=== PATIENT | male | born 1950 | race Caucasian/White ===

== ENCOUNTER → 2019-08-17 11:28 | Outpatient (CLI) | payer MEDICARE, BC | END | disposition home or self-care (01) | LOC: D.HCCARDIO 11:28 | PROVIDERS: ATTEND Internal Medicine Cardiovascular Disease | DX: R55 Syncope and collapse (principal) ==

== ENCOUNTER 2019-09-07 12:10 | Outpatient (CLI) | payer MEDICARE, BC ==
[~2019-09-07] VITALS: Ht 185.4 cm; Wt 83.4 kg
--- NOTE | ~2019-09-07 | HEMODYNAMI ---
PATIENT:KYLAH PAULA MEDICAL RECORD: [id number] : 46 LOCATION:[facility] ADMISSION DATE: 09/07/19 Generatedon:09/07/201915:01 Patient name: KYLAH PAULA Patient #: [id number] SSN: [id number] : 1950 Date of study: 09/07/2019 Page: Of Hemodynamic Procedure Report Patient Data Patient Demographics Procedure consent was obtained First Name: KYLAH Gender: Male Last Name: CHAI : 1950 Middle Initial: VIK Age: 69 year(s) Patient #: [id number] Race: SSN: [id number] Additional ID: [id number] Contact details [address]: [address] [place] [address] State: [place] City: [place] Zip code: [address] Admission Admission Data Admission Date: 09/07/2019 Admission Time: 12:10 Arrival Date: 09/07/2019 Arrival Time: 13:00 Admit Source: Other Insurance Payor: Medicare [facility] #: [id number] Height (in.): 72.83 BSA: 2.07 (m2) Height (cm.): 185 BMI: 24.25 (kg/m2) Weight (lbs.): 182.98 Weight (kg.): 83 Lab Results Lab Result Date: 09/07/2019 Lab Result Time: 0:00 Biochemistry Name Units Result Min Max BUN mg/dl 14 --(--*-)-- 7 18 Creatinine mg/dl 0.9 --(-*--)-- 0.6 1.3 eGFR ml/min 88.14652 -*(----)-- 90 120 NONAFRICAN CBC Name Units Result Min Max Hemoglobin g/dl 15 --(-*--)-- 13.5 17.5 Procedure Procedure Types Cath Procedure Diagnostic Procedure LHC LHC w/Coronaries Sedation Charges Moderate Sedation up to 30 minutes PCI Procedure Coronary Stent Coronary Stent Initial Hemochron ACT Test Procedure Description Procedure Date Procedure Date: 09/07/2019 Procedure Start Time: 14:23 Procedure End Time: 14:55 Procedure Staff Name Function Maikel Gonzalez MD Performing Physician Sweta Singh RT Monitor Leelee Villar RT Scrub Martine Baumann RN Nurse Procedure Data Cath Procedure Fluoroscopy Diagnostic fluoroscopy Total fluoroscopy Time: 8.2 time: 8.2 min min Diagnostic fluoroscopy Total fluoroscopy dose: 853 dose: 853 mGy mGy Contrast Material Contrast Material Type Amount (ml) Isovue 300 129 Entry Location Entry Primary Successful Side Size Upsize Upsize Entry Closure Ortiz ccessful Closure Location (Fr) 1 (Fr) 2 (Fr) Remarks Device Remarks Radial Right 6 Fr Mechanical artery Short Compression Estimated blood loss: 5 ml Diagnostic catheters Device Type Used For End Catheter Placement DIAGNOSTIC Michael 110cm Multi-vessel 5Fr catheter ([id number]) Angiography Procedure Complications No complications Procedure Medications Medication Administration Route Dosage Oxygen etCO2 Nasal cannula 2 l/min Lidocaine 2% added to field 20 Heparin Flush Bag added to field 2 bags (1000units/500ml NS) 0.9% NaCl I.V. 100 ml/hr Versed I.V. 1 mg Fentanyl I.V. 50 mcg Versed I.V. 1 mg Fentanyl I.V. 50 mcg Radial Cocktail I.A. 1 syringe (Verapamil 2mg/Nitro 400mcg/Heparin 1500units) Versed I.V. 1 mg Fentanyl I.V. 50 mcg Heparin Bolus I.V. 8000 units Versed I.V. 1 mg Fentanyl I.V. 50 mcg Plavix P.O. 600 mg Hemodynamics Rest BSA: 2.07 (m2) HGB: 15 (g/dl) O2 Consumption: Estimated: 231 (ml/min) O2 Consump tion indexed: Estimated:111.59 (ml/min/m) Heart Rate: 59 (bpm) Pressure Samples Time Site Value (mmHg) Purpose Heart Use Rate(bpm) 14:27 LV 122/-16,1 Snapshot 95 Gradients Valve Time Site Site Mean SEP/DFP Peak To Heart Use 1 2 (mmHg) (sec/min) Peak Rate (mmHg) (bpm) Aortic 14:28 LV AO 114 Snapshots Pre Cath Intra NCS Post Cath Vital Signs Time Heart Resp SPO2 etCO2 NIBP (mmHg) Rhythm Pain Sedation Rate (ipm) (%) (mmHg) Status Level (bpm) 14:13:02 56 14 94 35.1 123/74(96) NSR 0 (11) 10(A) , No pain 14:17:16 56 12 95 44.1 133/74(110) NSR 0 (11) 10(A) , No pain 14:21:42 58 12 95 29.1 122/42(97) NSR 0 (11) 10(A) , No pain 14:25:54 57 13 97 33.6 125/77(95) NSR 0 (11) 9(A) , No pain 14:30:06 68 17 93 32.1 122/70(85) NSR 0 (11) 9(A) , No pain 14:34:16 82 16 94 29.1 129/79(94) NSR 0 (11) 9(A) , No pain 14:38:26 79 15 95 38.1 126/73(111) NSR 0 (11) 9(A) , No pain 14:42:36 77 14 96 37.3 129/82(99) NSR 0 (11) 9(A) , No pain 14:46:43 78 14 97 47.8 128/80(105) NSR 0 (11) 9(A) , No pain 14:50:57 89 13 98 43.3 137/80(113) NSR 0 (11) 10(A) , No pain 14:55:46 84 14 99 42.1 133/76(118) NSR 0 (11) 10(A) , No pain Medications Time Medication Route Dose Verified Delivered Reason Not es Effectiveness by by 14:12:35 Oxygen etCO2 2 l/min Maikel Buffie used for Nasal Carlos Baumann RN procedure cannula 14:12:43 Lidocaine 2% added 20ml Maikel Maikel for local to vial Carlos Gonzalez MD anesthetic field 14:12:48 Heparin Flush added 2 bags Maikel Maikel used for Bag to Carlso Gonzalez MD procedure (1000units/500ml field NS) 14:12:56 0.9% NaCl I.V. 100 Maikel Buffie Per physician ml/hr Carlos Baumann RN 14:19:46 Versed I.V. 1 mg Maikel Buffie for sedation Carlos Baumann RN 14:19:52 Fentanyl I.V. 50 mcg Maikel Buffie for sedation Carlos Baumann RN 14:24:03 Versed I.V. 1 mg Maikel Buffie for sedation Carlos Baumann RN 14:24:07 Fentanyl I.V. 50 mcg Maikel Buffie for sedation Carlos Baumann RN 14:26:18 Radial Cocktail I.A. 1 Maikel Buffie for (Verapamil syringe Carlos Baumann RN vasodilation 2mg/Nitro 400mcg/Heparin 1500units) 14:35:26 Versed I.V. 1 mg Maikel Buffie for sedation Carlos Baumann RN 14:35:29 Fentanyl I.V. 50 mcg Maikel Buffie for sedation Carlos Baumann RN 14:38:03 Heparin Bolus I.V. 8000 Maikel Buffie for shorty ified units Carlos Baumann RN anticoagulation with dr gonzalez 14:44:50 Versed I.V. 1 mg Maikel Buffie for sedation Carlos Baumann RN 14:44:53 Fentanyl I.V. 50 mcg Maikel Buffie for sedation Carlos Baumann RN 14:53:00 Plavix P.O. 600 mg Maikel Buffie for Carlos Baumann RN antiplatelet therapy Procedure Log Time Note 13:46:40 Informed consent obtained and on chart 13:50:36 Martine Baumann RN sent for patient. Start room use. 14:00:47 Lab Result : BUN 14 mg/dl 14:00:47 Lab Result : eGFR NONAFRICAN 88.77506 ml/min 14:00:47 Lab Result : Creatinine 0.9 mg/dl 14:00:47 Lab Result : Hemoglobin 15 g/dl 14:00:51 Diagnostic Cath Status : Elective 14:02:34 Admit Source: Other 14:02:35 Arrival Date: 09/07/2019 1:00:00 PM 14:03:21 Insurance Payor : Medicare 14:03:24 Patient Height : 72.83 inches 14:03:27 Patient Weight : 182.98 lbs 14:03:33 Procedure Status Elective Heart Cath (OP). 14:03:48 Time tracking: Regular hours (M-F 7:00 - 5:00) 14:03:52 Plan of Care:Hemodynamics will remain stable., Cardiac rhythm will remain stable., Comfort level will be maintained., Respiratory function will remain adequate., Patient/ family verbilizes understanding of procedure., Procedure tolerated without complication., Recovers from procedure without complications.. 14:03:56 Patient received from Pre/Post Procedure Room to CCL 1 Alert and oriented. Tansferred to table in Supine position. 14:03:57 Warm blankets applied, and evelyn hugger turned on for patient comfort. 14:03:57 Correct patient and procedure confirmed by team. 14:03:58 ECG and BP/O2 sat monitors applied to patient. 14:11:54 Vital chart was started 14:11:55 Baseline sample Acquired. 14:11:59 Rhythm: sinus rhythm 14:12:01 Full Disclosure recording started 14:12:05 H&P Date Dictated: 09/07/2019 Within 30 days and on chart., H&P Addendum completed by physician on day of procedure. (MUST COMPLETE FOR ALL OUTPATIENTS). 14:12:07 Pre-procedure instructions explained to patient. 14:12:08 Pre-op teaching completed and patient verbalized understanding. 14:12:09 Family in patients room. 14:12:12 Patient NPO since Midnight. 14:12:13 Is the patient allergic to Iodine/contrast media? No. 14:12:14 Was the patient premedicated? Yes 14:12:15 Is patient on blood thinner?No 14:12:16 Patient diabetic? No. 14:12:19 Previous problem with sedation/anesthesia? No ? 14:12:22 Snore? Yes 14:12:22 Sleep apnea? No 14:12:23 Deviated septum? No 14:12:24 Opens mouth fully? Yes 14:12:25 Sticks out tongue? Yes 14:12:31 Airway obstruction? No ? 14:12:33 Dentures? No ? 14:12:35 Oxygen 2 l/min etCO2 Nasal cannula was administered by Martine Baumann RN; used for procedure; Verbal order read back and verified. 14:12:43 Lidocaine 2% 20ml vial added to field was administered by Maikel Gonzalez MD; for local anesthetic; Verbal order read back and verified. 14:12:48 Heparin Flush Bag (1000units/500ml NS) 2 bags added to field was administered by Maikel Gonzalez MD; used for procedure; Verbal order read back and verified. 14:12:56 0.9% NaCl 100 ml/hr I.V. was administered by Martine Baumann RN; Per physician; Verbal order read back and verified. 14:12:57 Pre procedure: right dorsailis pedis pulse 2+ Normal; easily identifiable; not easily obliterated 14:13:01 Pre procedure: left dorsailis pedis pulse 2+ Normal; easily identifiable; not easily obliterated 14:13:03 Patient pain scale 0/10 ?. 14:13:11 IV patent on arrival in left forearm with 0.9% NaCl at [facility]. 14:13:13 Lab results completed and on chart. 14:13:30 Stress Test: yes; abnormal INFERIOR,APICAL,LATERAL 14:16:08 Risk of Mortality: 0.1 14:16:11 Risk of blood transfusion: 0.1 14:16:15 Risk of MO: 0.3 14:16:19 Right Radial & Right Groin area was prepped with chlora-prep and draped in sterile fashion 14:16:21 Alarms reviewed by R. N. 14:16:21 Sharps counted by scrub and verified by R.N. 14:16:24 Physician arrived 14:16:24 --------ALL STOP TIME OUT------ 14:16:25 Final Timeout: patient, procedure, and site verified with staff and physician. All members of the team are in agreement. 14:16:27 Right Radial & Right Groin site verified by team. 14:16:31 Fire Safety Assessment: A--An alcohol-based skin anteseptic being used preoperatively., C--Open oxygen or nitrous oxide is being used., D--An ESU, laser, or fiber-optic light is being used. 14:16:34 Physical assessment completed. ASA score P 2 - A patient with mild systemic disease as per Maikel Gonzalez MD. 14:16:37 2) 60-89 Mildly reduced kidney function, and other findings (as for stage 1) point to kidney disease. 14:16:40 Maximum allowable contrast dose (3.7 X eGFR X 0.75)244 ml. 14:16:45 Sedation plan: IV Moderate Sedation Medication:Versed, Fentanyl 14:16:54 Use device set Radial Dx or PCI 14:16:56 ACIST Syringe (74874) opened to sterile field. 14:16:56 Medline Cath Pack ([id number]) opened to sterile field. 14:16:56 Bag Decanter (2001S) opened to sterile field. 14:16:57 ACIST Hand Control (99580) opened to sterile field. 14:16:57 ACIST Manifold (26260) opened to sterile field. 14:16:57 Tegaderm 4 x 4 (1626W) opened to sterile field. 14:16:58 MBrace Wrist Support ([id number]) opened to sterile field. 14:16:59 NEEDLE Cook 21G 4cm Radial (E92372) opened to sterile field. 14:17:00 SHEATH 6FR RAIN (9187964) opened to sterile field. 14:17:01 EMERALD Guide Wire (413-688) opened to sterile field. 14:19:46 Versed 1 mg I.V. was administered by Martine Baumann RN; for sedation; Verbal order read back and verified. 14:19:52 Fentanyl 50 mcg I.V. was administered by Martine Baumann RN; for sedation; Verbal order read back and verified. 14:23:09 Procedure started. 14:23:14 Local anesthetic to right radial artery with Lidocaine 2% by Maikel Gonzalez MD.INITIAL ACCESS ONLY 14:24:03 Versed 1 mg I.V. was administered by Martine Baumann RN; for sedation; Verbal order read back and verified. 14:24:07 Fentanyl 50 mcg I.V. was administered by Martine Baumann RN; for sedation; Verbal order read back and verified. 14:26:18 Radial Cocktail (Verapamil 2mg/Nitro 400mcg/Heparin 1500units) 1 syringe I.A. was administered by Martine Baumann RN; for vasodilation; Verbal order read back and verified. 14:26:30 A 6 Fr Short sheath was inserted into the Right Radial artery 14:27:34 A DIAGNOSTIC Michael 110cm 5Fr catheter (351722) was advanced over the wire and used for Multi-vessel Angiography. 14:27:49 LV hemodynamics recorded. 14:27:52 LV gram done using GUERRERO 14:27:55 Injector settings: Ml/sec: 5, Volume: 15, 14:28:07 EF : 60 % 14:28:56 RCA angiography performed. 14:29:00 Injector settings: Ml/sec: 3, Volume: 6, 14:30:07 LCA angiography performed. 14:30:10 Injector settings: Ml/sec: 3, Volume: 6, 14:31:11 Catheter removed. 14:31:29 INFLATOR Merit BasRalphpak (WQ1645) opened to sterile field. 14:31:30 TUBING High Pressure Extension Tubing (Carlos) (BX1011O) opened to sterile field. 14:31:30 BMW 300cm [place] 2 J wire ([id number]) opened to sterile field. 14:33:00 GUIDE 6FR XBLAD 3.5 catheter ([id number]) opened to sterile field. 14:34:26 ACC Pre-intervention CLAUDIA Flow is 3. 14:34:35 Pre PCI Site: [place] mLAD has 80% stenosis. 14:35:01 6 Fr XBLAD 3.5 guide catheter was inserted over the wire 14:35:05 BMW wire advanced. 14:35:26 Versed 1 mg I.V. was administered by Martine Baumann RN; for sedation; Verbal order read back and verified. 14:35:29 Fentanyl 50 mcg I.V. was administered by Martine Baumann RN; for sedation; Verbal order read back and verified. 14:38:03 Heparin Bolus 8000 units I.V. was administered by Martine Baumann RN; for anticoagulation; verified with dr gonzalez Verbal order read back and verified. 14:39:08 Wire advanced across lesion. 14:42:03 Place stent Inflation Number: 1 A FARHAN OTW 3.5 x 15 stent ([id number]) was prepped and advanced across the Mid LAD 80. The stent was deployed at 13 ANITA for 0:10 (min:sec) 0. 14:42:59 Stent catheter was removed intact over wire. 14:44:50 Versed 1 mg I.V. was administered by Martine Baumann RN; for sedation; Verbal order read back and verified. 14:44:53 Fentanyl 50 mcg I.V. was administered by Martine Baumann RN; for sedation; Verbal order read back and verified. 14:48:06 Place stent Inflation Number: 1 A FARHAN OTW 2.5 x 15 stent ([id number]) was prepped and advanced across the Dist LAD 80. The stent was deployed at 13 ANITA for 0:10 (min:sec) 0. 14:48:34 Stent catheter was removed intact over wire. 14:48:35 Wire removed. 14:48:36 Guide catheter removed. 14:48:45 Sheath removed intact; hemostasis achieved with Mechanical Compression to the Right Radial artery. 14:48:53 Procedure ended.(Physican Out) 14:48:56 ZEPHYR REGULAR TR BAND (319410) opened to sterile field. 14:49:25 Fluoroscopy time 08.20 minutes. 14:49:28 Fluoroscopy dose: 853 mGy 14:49:28 Flurop Dose total: 853 14:49:34 Dose Area Product 14749 mGy/cm. 14:53:00 Plavix 600 mg P.O. was administered by Martine Baumann RN; for antiplatelet therapy; Verbal order read back and verified. 14:53:21 Contrast amount:Isovue 300 129ml. 14:53:23 Maximum allowable dose exceeded? No. 14:53:24 Sharps counted by scrub and verified by R.N. 14:53:27 [place] band inflated with 15cc of air. 14:53:28 Insertion/operative site no bleeding no hematoma. 14:53:31 Post right radial artery:stable 14:53:33 Post Procedure Pulses reassessed and unchanged 14:53:35 Post procedure rhythm: unchanged. 14:53:38 Estimated blood loss: 5 ml 14:53:40 Post procedure instruction explained to patient.Patient verbalizes understanding. 14:53:40 Patient needs reinforcement of post procedure teaching. 14:54:36 Procedure type changed to Cath procedure, Diagnostic procedure, LHC, [facility] w/Coronaries, Sedation Charges, Moderate Sedation up to 30 minutes, PCI procedure, Coronary Stent, Coronary Stent Initial, Hemochron ACT Test 14:54:37 Procedure and supply charges have been captured, reviewed, submitted and are correct. 14:54:41 Procedure Complication : No complications 14:54:44 Vital chart was stopped 14:54:46 [facility] Findings: MVD- PCI performed (see procedure note) 14:54:49 Operative report dictated upon procedure completion. 14:54:50 See physician's report for complete and final results. 14:54:56 Report given to Pre/Post Procedure Room. 14:54:58 Patient transfered to Pre/Post Procedure Room with Stretcher. 14:55:00 Procedure ended. 14:55:00 Full Disclosure recording stopped 14:55:09 ACC-PCI Only Patient was given prescriptions, or instructed by Maikel Gonzalez MD to start/continue the following medications upon discharge: Plavix 14:55:11 End room use (Document Last) 14:56:11 ACT drawn and resulted at out of range high seconds. (normal therapeutic range 180-240 seconds). Intervention Summary Intervention Notes Time ActionType Lesion and Equipment Action# Pressure Duration Attributes Used 14:42:03 Place stent Mid LAD FARHAN OTW 3.5 1 13 00:10 x 15 stent ([id number]) 14:48:06 Place stent Dist LAD FARHAN OTW 2.5 1 13 00:10 x 15 stent ([id number]) Device Usage Item Name Manufacture Quantity Catalog Hospital Part Current Mini mal Lot# / Number Charge Number Stock Stock Serial# Code ACIST Syringe Acist 1 84996 979144 182913 003028 20 (61963) Medical Systems Inc Medline Cath Medline 1 [id number] 771056 68771 355145 5 Pack ([id number]) Bag Decanter Microtek 1 2001S 125988 13647 020263 5 (2001S) Medical Inc. ACIST Hand Acist 1 39864 728367 499613 693583 5 Control Medical (61942) Systems Inc ACIST Acist 1 39849 296306 987433 163655 5 Manifold Medical (07387) Systems Inc Tegaderm 4 x 3M 1 1626W 772993 139109 944426 5 4 (1626W) MBrace Wrist Advanced 1 140-0250-00 426465 80800 928628 5 Support Vascular (955245992) Dynamics NEEDLE Cook Cook Medical 1 K78736 531273 363771 261555 5 21G 4cm Radial (H32599) SHEATH 6FR Cardinal 1 1438840 952421 047[address]02 787[address] 5 [facility] (9413806) EMERALD Guide Cardinal 1 502-455 500787 561951 406400 5 [facility] Health (502-812) DIAGNOSTIC Terumo 1 40-5023 830327 130129 438384 5 Michael 110cm 5Fr catheter (740408) INFLATOR Merit 1 UN3338 570246 451452 164889 15 Merit Medical BasixCompak (CC3962) TUBING High Merit 1 [id number] 440641 83303 013784 10 Pressure Medical Extension Tubing (Carlos) (LX4103E) BMW 300cm Metzger 1 [id number] 597038 143135 807668 5 [place] 2 J Vascular wire (7845888S) GUIDE 6FR Cardinal 1 71187503 153213 963784 152395 10 XBLAD 3.5 Health catheter (81722443) FARHAN OTW 3.5 Medtronic 1 [id number] 921800 1117091 835254 5 [id number] x 15 stent ([id number]) FARHAN OTW 2.5 Medtronic 1 [id number] 015225 27338 917484 5 [id number] x 15 stent ([id number]) ZEPHYR Cardinal 1 395263 214267 2625262 650479 5 REGULAR TR Health BAND (994281) Signature Audit [place] Stage Time Signature Unsigned Intra-Procedure 09/07/2019 Sweta Singh 3:00:09 PM RT(R) Intra-Procedure 09/07/2019 Martine Baumann RN 3:01:05 PM Intra-Procedure 09/07/2019 Maikel Gonzalez MD 3:01:[address] [facility] [address] [place] [address]
[2019-09-07] MEDS ORDERED: TOPROL XL25 MG PO (12:56)
[2019-09-07] MEDS ORDERED: MOEXIPRIL HCL15 M1 PO (12:56)
[2019-09-07] MEDS ORDERED: OMEPRAZOLE20 M1 PO (12:56)
[2019-09-07] MEDS ORDERED: BAYER CHEWABLE81 MG PO (12:58)
[2019-09-07] MEDS ORDERED: PROBIOTIC1 EAC1 PO (12:58)
[2019-09-07] MEDS ORDERED: VITAMIN B-121000 MCG PO (12:59)
[2019-09-07 13:02] VITALS: BP 120/75; Ht 185.4 cm; Wt 83.4 kg
[2019-09-07 13:37] LABS: ALT (SGPT) 21 U/L (10-68); CALC OSMOLALITY 272 mosm/kg (275-300); CALCIUM 8.8 mg/dL (8.5-10.1); CARBON DIOXIDE 27.4 mmol/L (21.0-32.0); CHLORIDE - SERUM 103 mmol/L (98-107); CHOL - HDL RATIO 5.5 ratio (2.3-4.9); CHOLESTEROL, TOTAL 182 mg/dL (0-200); CREATININE - SERUM 0.9 mg/dL (0.6-1.3); GLUCOSE 92 mg/dL (74-106); HDL CHOLESTEROL 33 mg/dL (32-96); LDL CHOLESTEROL 118 mg/dL (0-100); LDL-HDL RATIO 3.6 ratio (1.5-3.5); POTASSIUM - SERUM 4.3 mmol/L (3.5-5.1); SODIUM 136 mmol/L (136-145); TRIGLYCERIDE 158 mg/dL (30-200); UREA NITROGEN 14 mg/dL (7-18); eGFR NON AFRICAN AMERICAN 88 mL/min (90-120)
[2019-09-07 13:47] LABS: BASOPHILS 0.3 % (0-2); EOSINOPHILS 2.8 % (0-7); HEMATOCRIT 46.1 % (42.0-54.0); IMMATURE GRANULOCYTES 0.4 % (0-5); MCH 30.1 pg (26.0-34.0); MCHC 32.5 g/dL (31.0-37.0); MCV 92.6 fL (80.0-100.0); MEAN PLATELET VOLUME 10.8 fL (7.4-10.4); MONOCYTES 7.1 % (2-11); NEUTROPHILS 58.4 % (40-80); PLATELET COUNT 267 10x3/uL (130-400); RBC 4.98 10x6/uL (4.20-6.10); RDW 14.4 % (11.5-14.5); WBC 11.5 10x3/uL (4.8-10.8)
[2019-09-07] MEDS ORDERED: PLAVIX75 MG PO (15:01)
[2019-09-07] MEDS ORDERED: PRAVACHOL20 MG PO (15:04)
--- NOTE | 2019-09-07 15:10 | NUR ---
DR. SHAW IN TO UPDATE AT BS. PT REC'D VIA STRETCHER TO ROOM 3 FROM RENTAL MANAGER. MONITORS ESTAB. PT DROWSING, SNORING. SEE COMMUNICATION SIGNALS INTELLIGENCE. ALARMS ON AND C/L IN REACH.
--- NOTE | 2019-09-07 15:25 | NUR ---
R WRIST SITE C/D/I, NO S/S BLEEDING OR SWELLING. PT RESTING QUIETLY, VSS. ALARMS ON AND C/L IN REACH.
--- NOTE | 2019-09-07 15:30 | NUR ---
NEW PRESCRIPTIONS FOR PLAVIX AND PRAVACHOL CALLED IN TO [facility] IN [place] PER PT REQUEST.
--- NOTE | 2019-09-07 15:55 | NUR ---
R WRIST SITE C/D/I, NO S/S BLEEDING OR SWELLING, PULSES PALP AND BRISK CAP REFILL. VSS. PT REPOSITIONED UP IN BED, SANDWICH TRAY AND WATER PROVIDED. ALARMS ON AND C/L IN REACH.
--- NOTE | 2019-09-07 16:10 | NUR ---
VSS. R WRIST SITE C/D/I, R HAND WARM WITH PALP PULSES. PT EATING SANDWICH, DENIES NEEDS. C/L IN REACH.
--- NOTE | 2019-09-07 16:40 | NUR ---
VSS. R WRIST SITE C/D/I. HAND WARM WITH PALP PULSES. NO S/S BLEEDING OR SWELLING. ALARMS ON AND C/L IN REACH.
--- NOTE | 2019-09-07 17:10 | NUR ---
R WRIST SITE C/D/I, NO S/S BLEEDING OR SWELLING. R HAND WARM WITH PALP PULSES. AT BS. PT DENIES NEEDS. C/L IN REACH.
--- NOTE | 2019-09-07 17:45 | NUR ---
2 CC AIR REMOVED FROM Z BAND, NO S/S BLEEDING - WILL CONT CLOSE MONITORING. VSS.
--- NOTE | 2019-09-07 18:00 | NUR ---
TOTAL 5CC AIR REMOVED FROM Z BAND, NO S/S BLEEDING OR SWELLING. WILL CONT CLOSE MONITORING.
--- NOTE | 2019-09-07 18:20 | NUR ---
ALL AIR REMOVED FROM Z BAND. NO S/S BLEEDING OR SWELLING. VSS. PT DENIES NEEDS. C/L IN REACH.
--- NOTE | 2019-09-07 18:38 | NUR ---
R WRIST SITE C/D/I. PIV D/C'D INTACT, DSG APPLIED. PT ALLOWED UP TO GET DRESSED WITH ASSISTING.
--- NOTE | 2019-09-07 18:45 | NUR ---
Z BAND OFF AND DSG/ARM BOARD APPLIED. ALL DISCHARGE INSTRUCTIONS INCLUDING RESTRICTIONS, MEDS AND F/U APPT REVIEWED WITH PT AND HIS - THEY VERBALIZE UNDERSTANDING.
--- NOTE | 2019-09-07 18:50 | NUR ---
PT UP TO BR INDEPENDENTLY, THEN D/C'D VIA WC TO PRIVATE VEHICLE. PT HAS ALL PAPERWORK AND BELONGINGS.
== END 2019-09-07 18:50 | disposition home or self-care (01) ==
LOC: D.CATH 12:10
PROVIDERS: ATTEND Internal Medicine Cardiovascular Disease
DX: R55 Syncope and collapse (principal); R94.39 Abnormal result of other cardiovascular function study; I25.10 Atherosclerotic heart disease of native coronary artery without angina pectoris; I10 Essential (primary) hypertension
CPT/HCPCS: 93458; C9600

== ENCOUNTER → 2020-01-02 13:01 | Outpatient (CLI) | payer MEDICARE, BC ==
[2019-09-07 13:02] VITALS: BMI 24.2
[~2020-01-02 13:01] MED LIST: BAYER CHEWABLE81 MG PO; MOEXIPRIL HCL15 M1 PO; OMEPRAZOLE20 M1 PO; PLAVIX75 MG PO; PRAVACHOL20 MG PO; PROBIOTIC1 EAC1 PO; TOPROL XL25 MG PO; VITAMIN B-121000 MCG PO
== END | disposition home or self-care (01) ==
LOC: D.US 13:00
PROVIDERS: ATTEND Internal Medicine Cardiovascular Disease
DX: I65.23 Occlusion and stenosis of bilateral carotid arteries (principal)